=== PATIENT | male | born 1980 | race African-American/Black ===

== ENCOUNTER 2017-02-13 17:30 | Emergency (ER) | payer OTHER ==
[~2017-02-13] VITALS: Ht 162.6 cm; Wt 140.6 kg
[~2017-02-13 17:30] MED LIST: ANUSOL1 EACH RC; CIPROFLOXACIN500 M1 PO; FLAGYL500 MG PO; MIRALAX255 GM PO; NOHOMEMEDICATIONS; NORCO 5-325 TA1 EACH PO; PREPARATION H C51 G1 RC; PROCTOFOAM-HC F10 G1 RE; STOOL SOFTENER1 EAC2 PO
[2017-02-13] MEDS ORDERED: ZPAK PO (19:06)
[2017-02-13 19:35] VITALS: BP 154/76
== END 2017-02-13 19:35 | disposition home or self-care (01) ==
LOC: ER 17:30
DX: J02.9 Acute pharyngitis, unspecified (principal); R05 Cough

== ENCOUNTER 2017-02-22 11:18 | Emergency (ER) | payer OTHER ==
[~2017-02-22] VITALS: Ht 162.6 cm; Wt 140.6 kg
--- NOTE | ~2017-02-22 | EKG ---
[address] [address] ELECTROCARDIOGRAM REPORT Name: ROSAYOLIS L [facility]Maykel[facility] [id number] Admission: 02/22/17 Attend Phys: Discharge: 02/22/17 Date of : 80 Report #: [id number] THIS REPORT FOR: //name// [facility] ED Test Date: 2017-02-22 Test Time: 11:37:37 Pat Name: YOLIS LEE Department: Room: Gender: Junior Assistant Manager: [facility] : 1980 Requested By: Patience Howe Order Number: [id number] MD: Franky Hinkle Measurements Intervals [place] Rate: 73 P: 45 [place]: 149 QRS: -1 QRSD: 97 T: 0 QT: 405 QTc: 447 Interpretive Statements Sinus rhythm No previous ECG available for comparison Electronically Signed On 02-22-2017 17:40:37 CDT by Franky Hinkle [email or web address] <ELECTRONICALLY SIGNED> By: Franky Hinkle MD 02/22/17 1740 [id number] Franky Hinkle MD /MARVIN
[~2017-02-22 11:18] MED LIST changes: +ZPAK PO
[2017-02-22] MEDS ORDERED: FLONASE 0.05%50 MCG NASAL (11:49)
[2017-02-22] MEDS ORDERED: CLARITIN10 MG PO (11:49)
[2017-02-22] MEDS ORDERED: PROAIR HFA8.5 GM INH (11:50)
[2017-02-22 12:20] VITALS: BP 148/90
== END 2017-02-22 12:21 | disposition home or self-care (01) ==
LOC: ER 11:18
DX: J06.9 Acute upper respiratory infection, unspecified (principal); E66.01 Morbid (severe) obesity due to excess calories; F17.200 Nicotine dependence, unspecified, uncomplicated